=== PATIENT | female | born 1965 | race American Indian/Alaskan Native ===

== ENCOUNTER 2017-03-19 18:07 | Emergency (ER) | payer OTHER ==
--- NOTE | 2017-03-19 18:20 | ED PDOC ---
"Arrival/HPI - General Time Seen by Provider: 03/19/17 18:11 - History of Present Illness Narrative History of Present Illness (Text): 03/19/17 18:16 51 y/o female, pmh including htn/hyperlipidemia/dm/TIA?, [place] [facility] [place]/o left lower abdominal pain for over 4 weeks. Pt. stated that she was [place] [facility] [place] and told her this is ovarian cyst. Pt. stated that the pain is on the left lower abdominal region, on and off, stated that the pain never resolved, feel nauseous with no vomiting, no night sweat, no chest pain or shortness of breath, no palpitation, no vaginal bleeding or discharge, no other medical or psychological complaints. Past Medical History - Provider Review Nursing Documentation Reviewed: Yes Family/Social History - Physician Review Nursing Documentation Reviewed: Yes Family/Social History: Unknown Family HX Allergies/Home Meds Allergies/Adverse Reactions: Allergies No Known Allergies Allergy (Verified 03/19/17 18:28) Home Medications: Home Meds Medication Instructions Recorded Confirmed Enalapril Maleate [Vasotec] 03/19/17 GlipiZIDE [Glucotrol] 03/19/17 Insulin Lispro [humALOG] 03/19/17 MetFORMIN [glucoPHAGE] 03/19/17 diltiaZEM [Cardizem] 5 mg PO ONCE 03/19/17 03/19/17 Review of Systems - Review of Systems Constitutional: absent: Fatigue, Fevers Eyes: absent: Vision Changes ENT: absent: Hearing Changes Respiratory: absent: SOB, Cough Cardiovascular: absent: Chest Pain Gastrointestinal: Abdominal Pain, Nausea. absent: Diarrhea, Vomiting Musculoskeletal: absent: Arthralgias, Back Pain Skin: absent: Rash, Pruritis Neurological: absent: Headache, Dizziness Psychiatric: absent: Anxiety, Depression Physical Exam Vital Signs Reviewed: Yes Vital Signs Temp Pulse Resp BP Pulse Ox 03/19/17 20:19 68 16 99 03/19/17 18:22 98.3 F 66 17 147/81 99 Temperature: Afebrile Blood Pressure: Normal Pulse: Regular Respiratory Rate: Normal Appearance: Positive for: Well-Appearing, Non-Toxic, Comfortable Pain Distress: Moderate Mental Status: Positive for: Alert and Oriented X 3 - Systems Exam Head: Present: Atraumatic, Normocephalic Pupils: Present: PERRL Extroacular Muscles: Present: EOMI Conjunctiva: Present: Normal Ears: Present: NORMAL TM, Normal Canal. No: Erythema Mouth: Present: Moist Mucous Membranes Neck: Present: Normal Range of Motion Respiratory/Chest: Present: Clear to Auscultation, Good Air Exchange. No: Respiratory Distress, Accessory Muscle Use Cardiovascular: Present: Regular Rate and Rhythm, Normal S1, S2. No: Murmurs Abdomen: Present: Tenderness (LLQ region), Normal Bowel Sounds. No: Distention , Peritoneal Signs, Rebound, Guarding Genitourinary/Pelvic Exam: Present: Other (Pt. declined. ) Back: Present: Normal Inspection Upper Extremity: Present: Normal Inspection. No: Cyanosis, Edema Lower Extremity: Present: Normal Inspection. No: Edema Neurological: Present: GCS=15, Speech Normal, Motor Func Grossly Intact, Gait Normal, Memory Normal Skin: Present: Warm, Dry, Normal Color. No: Rashes Psychiatric: Present: Alert, Oriented x 3, Normal Insight, Normal Concentration Medical Decision Making ED Course and Treatment: 03/19/17 18:21 -labs/ua/rapid flu -CT abdomen and pelvis -Transvaginal sonogram -IVF/toradol/pepcid/zofran -Observe and reassess 03/19/17 22:39 -Hcg is negative -labs are non-significant -UA show no UTI -Rapid flu is negative -Transvaginal show: Left ovary: 4.1 x 4.2 x 2.5 cm in size. Increased in echogenicity, nonspecific. 1.7 x 1.6 x 1.4CM hypoechoic lesion. Normal flow. -CT abdomen and pelvis: Probable LEFT ovarian cyst. See ultrasound report. Mild cystitis vs underdistention. Correlate with urinalysis. -Pt. has no rt. sided abdominal or pelvic pain. -Pain significantly decreased after toradol, no elevation of wbc, pt. request more pain med prior to discharge as she will like to go home, percocet 5/325mg po ordered. Pt. is eating and drinking well. -I checked the [facility] report and she has approx. 5 prescriptions for controlled substance, will not give it as discharge. -Discharge home with naproxen, heat compression, follow up with your own pmd and obgyn/GI within 2 days, return to the ER for any new or worsening signs or symptoms. - Lab Interpretations Lab Results: 03/19/17 20:34 03/19/17 20:34 Lab Results 03/19/17 21:10: Urine Color Light yellow, Urine Appearance Clear, Urine pH 6.5, Ur Specific [place] 1.010, Urine Protein Negative, Urine Glucose (UA) 250 H, Urine Ketones Negative, Urine Blood Negative, Urine Nitrate Negative, Urine Bilirubin Negative, Urine Urobilinogen 0.2, Ur Leukocyte Esterase Negative 03/19/17 21:10: Urine Opiates Screen Negative, Urine Methadone Screen Negative, Ur Barbiturates Screen Negative, Ur Phencyclidine Scrn Negative, Ur Amphetamines Screen Negative, U Benzodiazepines Scrn Negative, U Oth Cocaine Metabols Negative, U Cannabinoids Screen Negative 03/19/17 20:34: Beta HCG, Quant < 2.39 03/19/17 20:34: WBC 4.5, RBC 5.19, Hgb 13.0, Hct 39.5, MCV 76.1 L, MCH 25.0, MCHC 32.9, RDW 13.8, Plt Count 227, MPV 12.1 H, Gran % 57.7, Lymph % (Auto) 35.0 , [place] % (Auto) 4.9, Eos % (Auto) 2.0, Baso % (Auto) 0.4, Gran # 2.57, Lymph # ( Auto) 1.6, [place] # (Auto) 0.2, Eos # (Auto) 0.1, Baso # (Auto) 0.02 03/19/17 20:34: Sodium 140, Potassium 3.9, Chloride 99, Carbon Dioxide 29, Anion Gap 15, BUN 13, Creatinine 0.6 L, Est GFR ( Amer) > 60, Est GFR ( Non-Af Amer) > 60, Random Glucose 246 H, Calcium 9.3, Total Bilirubin 0.3, AST 26, ALT 35, Alkaline Phosphatase 93, Total Protein 7.2, Albumin 3.9, Globulin 3.3, Albumin/Globulin Ratio 1.2, Lipase 46 03/19/17 20:34: Influenza Typ A,B (EIA) Negative for flu a/b - RAD Interpretation Radiology Orders: 03/19/17 18:29 ABD & PELVIS IV CONTRAST ONLY [CT] Stat TRANSVAGINAL [US] Stat Transvaginal sonogram: FINDINGS: Limitations: Body habitus. Patient compliance as per technologist. Uterus/cervix: Uterus measures 6.9 x 3.4 x 3.7 cm in size. No myometrial mass. Endometrium: 0.6 cm in thickness. Right ovary: Not visualized. Left ovary: 4.1 x 4.2 x 2.5 cm in size. Increased in echogenicity, nonspecific. 1.7 x 1.6 x 1.4CM hypoechoic lesion. Normal flow. Free fluid: No significant free fluid. Bladder: Unremarkable as visualized. IMPRESSION: 1. Probable LEFT ovarian cyst. 2. Incidental/non-acute findings are described above. EXAM: US Pelvis, Transvaginal CLINICAL HISTORY: 51 years old, female; Pain; Abdominal pain; Lower abdomen; Additional info: Lower abdominal pain x 4 weeks EULA ASHLEY | Final Radiology Report CONFIDENTIALITY STATEMENT This report is intended only for use by the referring physician, and only in accordance with law. If you received this in error, call [phone]. Page 2 of 2 TECHNIQUE: Real-time transvaginal pelvic ultrasound (complete) with image documentation. Transvaginal imaging was used for better evaluation of the endometrium and adnexa. COMPARISON: No relevant prior studies available. FINDINGS: Limitations: Body habitus. Patient compliance as per technologist. Uterus/cervix: Uterus measures 6.9 x 3.4 x 3.7 cm in size. No myometrial mass. Endometrium: 0.6 cm in thickness. Right ovary: Not visualized. Left ovary: 4.1 x 4.2 x 2.5 cm in size. Increased in echogenicity, nonspecific. 1.7 x 1.6 x 1.4 hypoechoic lesion. Normal flow. Free fluid: No significant free fluid. Bladder: Empty bladder which cannot be evaluated with this probe. IMPRESSION: 1. Probable LEFT ovarian cyst. 2. Incidental/non-acute findings are described above. Thank you for allowing us to participate in the care of your patient. Dictated and Authenticated by: Chandler Ellington MD 03/19/2017 8:45 PM Eastern Time ( & [place]) CT abdomen and pelvis: FINDINGS: Lower thorax: Minimal atelectasis/scarring. ABDOMEN: Liver: Fatty infiltration. Gallbladder and bile ducts: No calcified stones. No ductal dilation. Pancreas: No ductal dilation. No mass. Spleen: No splenomegaly. Adrenals: No mass. Kidneys and ureters: No mass. No hydronephrosis. Stomach and bowel: No definite mural thickening. No obstruction. Appendix: Normal caliber. No inflammation. PELVIS: Bladder: Apparent mild bladder wall thickening. Incomplete distention, limiting evaluation. Reproductive: 1.2 x 1.6 x 1.4 cm hypodense lesion within LEFT ovary. EULA ASHLEY | Final Radiology Report CONFIDENTIALITY STATEMENT This report is intended only for use by the referring physician, and only in accordance with law. If you received this in error, call [phone]. Page 2 of 2 ABDOMEN and PELVIS: Intraperitoneal space: Trace free fluid within pelvis. No free air. Bones/joints: Mild degenerative changes of spine. No acute fracture. Soft tissues: Mild diffuse stranding within subcutaneous tissues. Vasculature: Unremarkable. No aneurysm. Lymph nodes: No pathologically enlarged lymph nodes. IMPRESSION: 1. Probable LEFT ovarian cyst. See ultrasound report. 2. Mild cystitis vs underdistention. Correlate with urinalysis. 3. Incidental/non-acute findings are described above. Thank you for allowing us to participate in the care of your patient. Dictated and Authenticated by: Chandler Ellington MD 03/19/2017 10:03 PM Eastern Time ( & [place]) Test Engineer Nuclear Equipment: Radiologist - Medication Orders Current Medication Orders: Sodium Chloride (Sodium Chloride 0.9%) 1,000 mls @ 100 mls/hr IV .Q10H HARDIK Last Admin: 03/19/17 20:35 Dose: 100 mls/hr eMAR Start Stop Document 03/19/17 20:35 RD (Rec: 03/19/17 20:42 RD [facility]) Intravenous Solution Start Date 03/19/17 Start Time 20:36 Discontinued Medications Famotidine (Pepcid) 20 mg IVP STAT STA Stop: 03/19/17 18:30 Last Admin: 03/19/17 21:31 Dose: 20 mg IVP Administration Document 03/19/17 21:31 RD (Rec: 03/19/17 21:31 RD [facility]) Charges for Administration # of IVP Administrations 1 Ketorolac Tromethamine (Toradol) 30 mg IVP STAT STA Stop: 03/19/17 18:30 Last Admin: 03/19/17 21:30 Dose: 30 mg MAR Pain Assessment Document 03/19/17 21:30 RD (Rec: 03/19/17 21:30 RD [facility]) Pain Reassessment Is this a pain reassessment? No Sleep Is patient sleeping during reassessment? No Presence of Pain Presence of Pain Yes IVP Administration Document 03/19/17 21:30 RD (Rec: 03/19/17 21:30 RD [facility]) Charges for Administration # of IVP Administrations 1 - PA / TRAUMA DIRECTOR / Resident Statement / has reviewed & agrees with the documentation as recorded. Disposition/Present on Arrival - Present on Arrival Any Indicators Present on Arrival: No History of DVT/PE: No History of Uncontrolled Diabetes: No Urinary Catheter: No History of Decub. Ulcer: No - Disposition Have Diagnosis and Disposition been Completed?: Yes Diagnosis: Ovarian cyst, Abdominal pain Disposition: HOME/ ROUTINE Disposition Time: 22:43 Patient Plan: Discharge Patient Problems: Current Active Problems Problem Status Onset Ovarian cyst Acute Condition: IMPROVED Additional Instructions: -Discharge home with naproxen, heat compression, follow up with your own pmd and obgyn/GI within 2 days, return to the ER for any new or worsening signs or symptoms. Prescriptions: Naproxen 500 mg PO BID PRN #20 tab PRN Reason: Other Referrals: Oscar Pinzon MD [Primary Care Provider] - Follow up with primary Aurelio Young DO [Staff Provider] - Follow up with primary Gordon Messina DO [Staff Provider] - Follow up with primary Forms: WORK NOTE"
[2017-03-19] MEDS ORDERED: Sodium Chloride 0.9% 1,000 ML IV SCH (18:30)
[2017-03-19 18:32] VITALS: TEMP 98.3; BMI 30.4
[2017-03-19] MEDS ORDERED: Iohexol 350 MG/100 ML VIAL ONE (18:32)
--- NOTE | 2017-03-19 20:45 | US ---
EXAM: US Pelvis Complete, Transabdominal CLINICAL HISTORY: 51 years old, female; Pain; Abdominal pain; Lower abdomen; Additional info: Lower abdominal pain x 4 weeks TECHNIQUE: Real-time transabdominal pelvic ultrasound (complete) with image documentation. COMPARISON: No relevant prior studies available. FINDINGS: Limitations: Body habitus. Patient compliance as per technologist. Uterus/cervix: Uterus measures 6.9 x 3.4 x 3.7 cm in size. No myometrial mass. Endometrium: 0.6 cm in thickness. Right ovary: Not visualized. Left ovary: 4.1 x 4.2 x 2.5 cm in size. Increased in echogenicity, nonspecific. 1.7 x 1.6 x 1.4 hypoechoic lesion. Normal flow. Free fluid: No significant free fluid. Bladder: Unremarkable as visualized. IMPRESSION: 1. Probable LEFT ovarian cyst. 2. Incidental/non-acute findings are described above. EXAM: US Pelvis, Transvaginal CLINICAL HISTORY: 51 years old, female; Pain; Abdominal pain; Lower abdomen; Additional info: Lower abdominal pain x 4 weeks TECHNIQUE: Real-time transvaginal pelvic ultrasound (complete) with image documentation. Transvaginal imaging was used for better evaluation of the endometrium and adnexa. COMPARISON: No relevant prior studies available. FINDINGS: Limitations: Body habitus. Patient compliance as per technologist. Uterus/cervix: Uterus measures 6.9 x 3.4 x 3.7 cm in size. No myometrial mass. Endometrium: 0.6 cm in thickness. Right ovary: Not visualized. Left ovary: 4.1 x 4.2 x 2.5 cm in size. Increased in echogenicity, nonspecific. 1.7 x 1.6 x 1.4 hypoechoic lesion. Normal flow. Free fluid: No significant free fluid. Bladder: Empty bladder which cannot be evaluated with this probe.
[2017-03-19 20:59] LABS: BASO # 0.02 K/mm3 (0.0-2.0); BASO % 0.4 % (0.0-3.0); EOS # 0.1 (0.0-0.7); GRAN # 2.57 (1.4-6.5); GRAN % 57.7 % (50.0-68.0); LYMPH # 1.6 (1.2-3.4); MEAN CELL VOLUME 76.1 fl (80.0-105.0); MEAN CORPUSCULAR HGB CONC 32.9 g/dl (31.0-37.0); MEAN PLATELET VOLUME 12.1 fl (7.0-11.0); MONO # 0.2 (0.1-0.6); MONO % 4.9 % (1.0-6.0); RBC 5.19 10^6/uL (3.5-6.1); RED CELL DISTRIBUTION WIDTH 13.8 % (11.5-14.5); WHITE BLOOD COUNT 4.5 10^3/ul (4.5-11.0)
[2017-03-19 21:08] LABS: ALB/GLOB RATIO 1.2 (1.1-1.8); ALBUMIN 3.9 g/dL (3.0-4.8); ALT/SGPT 35 U/L (7-56); AST/SGOT 26 U/L (14-36); BLOOD UREA NITROGEN 13 mg/dL (7-21); CALCIUM 9.3 mg/dL (8.4-10.5); GFR AFRICAN-AMERICAN > 60; GFR NON-AFRICAN AMERICAN > 60; LIPASE 46 U/L (23-300)
[2017-03-19 21:25] LABS: PH,URINE 6.5 (4.7-8.0); URINE BILIRUBIN NEGATIVE (NEGATIVE); URINE BLOOD NEGATIVE (NEGATIVE); URINE GLUCOSE (UA) 250 mg/dL (NEGATIVE); URINE LEUKOCYTE ESTERASE NEGATIVE Leu/uL (NEGATIVE); URINE NITRATE NEGATIVE (NEGATIVE); URINE PROTEIN NEGATIVE mg/dL (<30 mg/dL); URINE UROBILINOGEN 0.2 E.U./dL (<1 E.U./dL)
[2017-03-19 21:44] LABS: BARBITURATES, UR NEGATIVE (NEGATIVE); BENZODIAZEPINES, UR NEGATIVE (NEGATIVE); OPIATES, UR NEGATIVE (NEGATIVE); PHENCYCLIDINE, UR NEGATIVE (NEGATIVE)
[2017-03-19 21:45] LABS: URINE APPEARANCE CLEAR (CLEAR); URINE COLOR LIGHT YELLOW (YELLOW)
--- NOTE | 2017-03-19 22:04 | CT ---
EXAM: CT Abdomen and Pelvis With Intravenous Contrast CLINICAL HISTORY: 51 years old, female; Pain; Abdominal pain; Localized; Lower; Additional info: Lower abdominal pain TECHNIQUE: Axial computed tomography images of the abdomen and pelvis with intravenous contrast. All CT scans at this facility use one or more dose reduction techniques, viz.: automated exposure control; ma/kV adjustment per patient size (including targeted exams where dose is matched to indication; i.e. head); or iterative reconstruction technique. Coronal and sagittal reformatted images were created and reviewed. CONTRAST: 100 mL of OMNI administered intravenously. COMPARISON: US - TRANSVAGINAL 2017-03-19 19:31 FINDINGS: Lower thorax: Minimal atelectasis/scarring. ABDOMEN: Liver: Fatty infiltration. Gallbladder and bile ducts: No calcified stones. No ductal dilation. Pancreas: No ductal dilation. No mass. Spleen: No splenomegaly. Adrenals: No mass. Kidneys and ureters: No mass. No hydronephrosis. Stomach and bowel: No definite mural thickening. No obstruction. Appendix: Normal caliber. No inflammation. PELVIS: Bladder: Apparent mild bladder wall thickening. Incomplete distention, limiting evaluation. Reproductive: 1.2 x 1.6 x 1.4 cm hypodense lesion within LEFT ovary. ABDOMEN and PELVIS: Intraperitoneal space: Trace free fluid within pelvis. No free air. Bones/joints: Mild degenerative changes of spine. No acute fracture. Soft tissues: Mild diffuse stranding within subcutaneous tissues. Vasculature: Unremarkable. No aneurysm. Lymph nodes: No pathologically enlarged lymph nodes. IMPRESSION: 1. Probable LEFT ovarian cyst. See ultrasound report. 2. Mild cystitis vs underdistention. Correlate with urinalysis. 3. Incidental/non-acute findings are described above.
[2017-03-19] MEDS ORDERED: Oxycodone/Acetaminophen 5/325 mg Tab PO STA (22:33)
[2017-03-19 22:58] VITALS: BP 132/76; PULSE 62; RESP 18; O2SAT 98
== END 2017-03-20 01:22 | disposition home or self-care (01) ==
LOC: MERGE 18:07 → ED 18:07
DX: N83.202 Unspecified ovarian cyst, left side (principal); R10.9 Unspecified abdominal pain; I10 Essential (primary) hypertension; E78.5 Hyperlipidemia, unspecified; E11.9 Type 2 diabetes mellitus without complications
CPT/HCPCS: 74177; 76830; 80053; 81003; 83690; 84702; 85025; 87804; 96374; 96375; 99283; G0480; J1885; J7040; Q9967